=== PATIENT | female | born 1990 | race Caucasian/White ===

== ENCOUNTER 2019-04-12 22:08 | Inpatient (IN) | payer BC ==
[~2019-04-12 22:08] MED LIST: Lidocaine 2% MPF 10 ML AMP (For Epidural Use) ONE
[2019-04-12 23:02] VITALS: BMI 28.8
[2019-04-12] MEDS ORDERED: Promethazine HCl 25 MG/ML VIAL IM PRN (23:09)
[2019-04-12] MEDS ORDERED: Lidocaine 1% (PF) 30 ML VIAL SC PRN (23:09)
[2019-04-12] MEDS ORDERED: Ibuprofen 800 MG TAB PO PRN (23:09)
[2019-04-12] MEDS ORDERED: Methylergonovine 0.2 MG/ML VIAL IM PRN (23:09)
[2019-04-12] MEDS ORDERED: Misoprostol 200 MCG TAB PR PRN (23:09)
[2019-04-12] MEDS ORDERED: HYDROcodone/Acetaminophen 5/325 mg Tablet PO PRN ×2 (23:09)
[2019-04-12] MEDS ORDERED: hydrALAZINE 20 MG/ML VIAL SLOW IVP PRN (23:09)
[2019-04-12] MEDS ORDERED: NS / Oxytocin 40 units/1000ml 1,000 ML IV PRN (23:09)
[2019-04-12] MEDS ORDERED: Butorphanol Tartrate 1 MG/ML VIAL SLOW IVP PRN (23:09)
[2019-04-12] MEDS ORDERED: Ondansetron PF 4 MG/2 ML Vial IVP PRN (23:09)
[2019-04-12] MEDS ORDERED: Penicillin G Potassium 5 MILL.UNITS in Sodium Chloride 0.9% 100 ML IVPB SCH (23:15)
--- NOTE | 2019-04-12 23:17 | PDOC.LDHP ---
Labor and Delivery H&P Chief complaint: scheduled induction HPI: patient arrives for IOL due to IUGR Current gestational age (weeks): 39 Due date: 04/20/19 Dating criteria: last menstrual period Grav: 3 Para: 0 Current complications: IUGR Abnormal US findings: Yes (IUGR 4.8%ile) Current medications: pre- vitamins (Verified with 1st trimester US.) Previous surgical history: none, other (wisdom tonsillectomy 2009 bilateral bunectomy 2012) Allergies/Adverse Reactions: Allergies Allergy/AdvReac Type Severity Reaction Status Date / Time No Known Allergies Allergy Verified 04/13/19 04:36 Social history: none - Physical Exam Vital signs reviewed and normal: yes General: breathing through contractions Heart: RRR Lungs: nonlabored breathing Abdomen: gravid FHT: category 1 - Vaginal Exam cm dilated: 2 Effacement: 75% Station: 0 - OB Labs Blood type: B RH: positive Antibody Screen: negative HIV: negative RPR: negative HEPSAg: negative 1 hour GCT: negative GBS: positive Urine drug screen: negative Rubella: immune - Assessment L&D Assessment: medically indicated induction (for IUGR.)
[2019-04-12 23:51] LABS: Mean Corpuscular Hemoglobin 28.9 pg (27.0-31.0); Mean Platelet Volume 8.8 fL (7.4-10.4); Platelet Count 262 thou/uL (130-400); Red Blood Cell (RBC) Count 4.15 mill/uL (4.20-5.40); White Blood Cell (WBC) Count 14.5 thou/uL (4.8-10.8)
[2019-04-13 00:33] LABS: Syphilis Antibody Nonreactive (Nonreactive); Syphilis Antibody Index 0.03 S/CO (<1.00 Non-Reactive)
[2019-04-13 00:34] LABS: HBSAg Index 0.14 S/CO (0-0.99); Hep B Surf Ag Non-Reactive S/CO (NonReactive)
[2019-04-13] MEDS: Misoprostol 100 MCG TAB PO SCH ×2 (05:56→16:18)
[2019-04-13] MEDS: Pen G 2.5 MILL.UNITS/50 ML BAG IVPB SCH ×4 (08:13→16:18)
[2019-04-13] MEDS: NS w/ Oxytocin 10 units 500 ML IV SCH (09:19)
[2019-04-13] MEDS ORDERED: Fentanyl 4 mcg/Bup 0.1% Cadd 100 ML ONE (15:36)
[2019-04-13] MEDS: Lactated Ringer's 1,000 ML IV SCH (16:19)
[2019-04-13] MEDS ORDERED: Promethazine HCl 25 MG/ML VIAL IM PRN (16:26)
[2019-04-13] MEDS ORDERED: diphenhydrAMINE 50 MG/ML VIAL IVP PRN (16:26)
[2019-04-13] MEDS ORDERED: ePHEDrine/0.9% NaCl/PF SYRINGE 50 mg/10 ml SLOW IVP PRN (16:26)
[2019-04-13] MEDS ORDERED: Ondansetron PF 4 MG/2 ML Vial IVP PRN (16:26)
[2019-04-13] MEDS ORDERED: Naloxone HCl 0.4 mg/ml Vial IVP PRN ×2 (16:26)
[2019-04-13] MEDS ORDERED: Lactated Ringer's 500 ML IV PRN (16:26)
[2019-04-13] MEDS ORDERED: Acetaminophen 325 MG TAB PO PRN (16:26)
[2019-04-13] MEDS ORDERED: Communication Order-Pharmacy FS SCH (16:30)
[2019-04-13] MEDS ORDERED: Fentanyl 4 mcg/Bupivacaine 0.1% Cassette 100 ML EPIDURAL SCH (16:30)
--- NOTE | 2019-04-13 21:09 | PDOC.OPDEL ---
OB Operative/Delivery Note Delivery Dr/Surgeon: Rafy Johns Pre-Delivery Diagnosis: active labor, medically indicated induction Procedure/Post Delivery Dx: spontaneous vaginal delivery Weeks gestation: 39 Anesthesia: epidural - Findings A Sex: male Weight: 5 lb 13 oz - 1 min: 8 - 5 min: 9 - Additional Findings/Plan Placenta delivered: spontaneous Repaired Obstetrical Laceration: 1st degree Estimated blood loss: 90mL Post delivery plan: routine recovery
[2019-04-13] MEDS ORDERED: Milk Of Magnesia 30 ML UDCUP PO PRN (23:31)
[2019-04-13] MEDS ORDERED: Methylergonovine 0.2 MG/ML VIAL IM PRN (23:31)
[2019-04-13] MEDS ORDERED: Benzocaine-Menthol 82.5 ML CAN TOP PRN (23:31)
[2019-04-13] MEDS ORDERED: Bisacodyl 10 MG SUPP PR PRN (23:31)
[2019-04-13] MEDS ORDERED: HYDROcodone/Acetaminophen 5/325 mg Tablet PO PRN ×2 (23:31)
[2019-04-13] MEDS ORDERED: hydrALAZINE 20 MG/ML VIAL SLOW IVP PRN (23:31)
[2019-04-13] MEDS ORDERED: NS / Oxytocin 40 units/1000ml 1,000 ML IV SCH (23:31)
[2019-04-13] MEDS: Ibuprofen 800 MG TAB PO SCH (23:42)
[2019-04-14] MEDS ORDERED: Lanolin Ointment 7 GM TUBE TOP PRN (01:49)
[2019-04-14] MEDS: Ibuprofen 800 MG TAB PO SCH ×4 (05:28→21:40)
[2019-04-14] MEDS ORDERED: NS / Oxytocin 40 units/1000ml 1,000 ML IV SCH (05:45)
[2019-04-14] MEDS: Ferrous Sulfate 325 MG TAB PO SCH ×2 (07:52→14:32)
[2019-04-14] MEDS: Lactated Ringer's 1,000 ML IV SCH ×2 (07:52→07:55)
[2019-04-14] MEDS: Misoprostol 100 MCG TAB PO SCH (07:53)
[2019-04-14] MEDS: Pen G 2.5 MILL.UNITS/50 ML BAG IVPB SCH ×2 (07:53→07:54)
[2019-04-14] MEDS: NS w/ Oxytocin 10 units 500 ML IV SCH (07:54)
[2019-04-14] MEDS ORDERED: Measles/Mumps/Rubella 10 MCG/0.5 ML VIAL SC ONE (09:00)
[2019-04-14] MEDS ORDERED: Adacel (T-DAP) 0.5 ML SYRINGE IM ONE (09:00)
[2019-04-14] MEDS: Prenatal Vitamin 1 TAB PO SCH (09:19)
[2019-04-14] MEDS: Docusate Calcium (SURFAK) 240 MG CAP PO SCH ×2 (09:19→21:40)
--- NOTE | 2019-04-14 21:04 | PDOC.PP ---
Post Progress Note Post Day #: 1 Subjective: patient is doing well except her is very sleepy and she is having trouble him. In particular she is having difficulty on her right breast due to the shape of her nipple PO intake tolerated: yes Flatus: yes Ambulation: yes Vital Signs (12 hours) Temp Pulse Resp BP Pulse Ox 04/14/19 17:39 98.6 F 93 20 112/73 96 04/14/19 12:14 98.3 F 109 H 20 121/59 L Weight Weight 190 lb - Physical Examination General: NAD Cardiovascular: no m/r/g Respiratory: non-labored breathing Abdominal: + bowel sounds, lochia (minimal) Extremities: negative homans (B) Skin: no rash Neurological: no gross focal deficits Psychiatric: A&Ox3, normal affect Result Diagrams: 04/12/19 23:38 Additional Labs: Post Labs Blood Type B POSITIVE 04/13/19 01:10 Hep Bs Antigen Non-Reactive S/CO (NonReactive) 04/12/19 23:38 (1) (spontaneous vaginal delivery) Code(s): O80 - ENCOUNTER FOR FULL-TERM UNCOMPLICATED DELIVERY Status: Acute (2) IUGR (intrauterine growth restriction) Status: Acute (3) First degree laceration of perineum during delivery, Code(s): O70.0 - FIRST DEGREE PERINEAL LACERATION DURING DELIVERY Status: Acute - Assessment/Plan A: g1 now p1 s/p uncomplicated delivery follwoing IOL for IUGR. P: routine care
[2019-04-15] MEDS: Ibuprofen 800 MG TAB PO SCH ×3 (05:29→22:08)
[2019-04-15] MEDS: Ferrous Sulfate 325 MG TAB PO SCH ×2 (07:46→14:56)
[2019-04-15] MEDS: Prenatal Vitamin 1 TAB PO SCH (09:43)
[2019-04-15] MEDS: Docusate Calcium (SURFAK) 240 MG CAP PO SCH ×2 (09:43→22:08)
[2019-04-15 20:46] VITALS: BP 134/79; TEMP 97.9
== END 2019-04-15 23:25 | disposition home or self-care (01) | DRG 807 ==
LOC: L&D 22:08 → 3SW 04-13 22:37
PROVIDERS: ADMIT Obstetrics & Gynecology; ATTEND Obstetrics & Gynecology
PROC: 10E0XZZ Delivery of Products of Conception, External Approach (ICD-10-PCS; principal; 2019-04-12)
PROC: 0HQ9XZZ Repair Perineum Skin, External Approach (ICD-10-PCS; 2019-04-12)
DX: O36.5930 Maternal care for other known or suspected poor fetal growth, third trimester, not applicable or unspecified (principal); Z37.0 Single live birth; O99.824 Streptococcus B carrier state complicating childbirth; O70.0 First degree perineal laceration during delivery; Z3A.39 39 weeks gestation of pregnancy
CPT/HCPCS: 36415; 51702; 85027; 86780; 86850; 86900; 86901; 87340; J0595; J2001; J2540; J2590